=== PATIENT | male | born 1945 | race Caucasian/White ===

== ENCOUNTER 2018-03-28 11:34 | Emergency (ER) | payer OTHER ==
[~2018-03-28] VITALS: Ht 180.3 cm; Wt 108.9 kg
[2018-03-28] MEDS ORDERED: SYNTHR (11:46)
[2018-03-28] MEDS ORDERED: HYZAAR 100-251 EACH (11:47)
[2018-03-28] MEDS ORDERED: GLIPIZIDE XL2.5 MG (11:47)
[2018-03-28] MEDS ORDERED: ATORVASTATIN CA20 MG (11:48)
== END 2018-03-28 16:10 | disposition home or self-care (01) ==
LOC: ER 11:34
DX: R10.11 Right upper quadrant pain (principal)

== ENCOUNTER → 2018-04-20 | Day surgery (SDC) | payer OTHER ==
[~2018-04-20] MED LIST: ATORVASTATIN CA20 MG; GLIPIZIDE XL2.5 MG; HYZAAR 100-251 EACH; SYNTHR
== END | disposition home or self-care (01) ==
LOC: ADM 04-16 07:30 → AMB-ENDOS 07:30
DX: D12.2 Benign neoplasm of ascending colon (principal); D12.3 Benign neoplasm of transverse colon; K64.1 Second degree hemorrhoids

== ENCOUNTER 2018-08-11 06:43 | Emergency (ER) | payer OTHER ==
[~2018-08-11] VITALS: Ht 180.3 cm; Wt 111.1 kg
== END 2018-08-11 16:54 | disposition home or self-care (01) ==
LOC: ER 06:43
DX: M79.605 Pain in left leg (principal)

== ENCOUNTER 2021-11-24 11:01 | Emergency (ER) | payer OTHER ==
[~2021-11-24] VITALS: Ht 177.8 cm; Wt 111.1 kg
[2021-11-24] MEDS ORDERED: SYNTHROID88 MCG (12:50)
[2021-11-24] MEDS ORDERED: PANTOPRAZOLE SO40 M2 (12:50)
[2021-11-24] MEDS ORDERED: CHILDREN'S ASPI81 MG (12:51)
[2021-11-24] MEDS ORDERED: NASAL MIST126 ML (12:51)
== END 2021-11-24 16:39 | disposition home or self-care (01) ==
LOC: ER 11:01
DX: M54.9 Dorsalgia, unspecified (principal)

== ENCOUNTER 2024-02-28 05:15 | Day surgery (SDC) | payer OTHER ==
[2024-02-19 11:09] LABS: PH,URINE 5.5 (5.0-8.0); URINE APPEARANCE Clear; URINE BILIRRUBIN Negative (NEGATIVE); URINE BLOOD Negative; URINE COLOR Yellow; URINE GLUCOSE Negative (NEGATIVE); URINE KETONE 15 (NEGATIVE); URINE LEUKOCYTE Negative; URINE NITRATE Negative; URINE PROTEIN Trace (NEGATIVE); URINE UROBILINOGEN 0.2 E.U./dl
[2024-02-19 11:12] LABS: URINE BACTERIA 45.2 uL (0.0-1933); URINE EPITHELIAL CELLS 5.6 uL (0.0-38.8); URINE WBC 4.1 uL (0.0-23.2)
[2024-02-19 11:18] LABS: HEMATOCRIT 47.4 % (39.0-48.0); HEMOGLOBIN 16.1 g/dL (13-16.00); MEAN CELL VOLUME 99.7 fL (80.0-100.00); MEAN CORPUSCULAR HEMOGLOBIN 33.9 pg (27.00-32.0); PLATELET COUNT 229 K/uL (150-450); RED BLOOD COUNT 4.76 M/uL (4.00-6.00); RED CELL DISTRIBUTION WIDTH 15.3 % (11.5-14.5)
[2024-02-19 11:27] LABS: INR 1.06; PARTIAL THROMBOPLASTIN TIME 28.7 SECONDS (22.0-34.0); PROTHROMBIN TIME 11.5 SECONDS (9.0-11.5)
[2024-02-19 11:30] LABS: URINE CAST 0.44 uL (0.0-1.40)
[2024-02-19 12:20] LABS: ALBUMIN 3.4 gm/dL (3.4-5.0); BILIRUBIN TOTAL 0.81 mg/dL (0.3-1.2); CALCIUM 9.1 mg/dL (8.5-10.1); CREATININE SERUM 1.33 mg/dL (0.70-1.30); GFR 51.73; POTASSIUM 4.77 mEq/L (3.5-5.1); TOTAL PROTEIN 7.4 gm/dL (6.4-8.2)
[~2024-02-28 05:15] MED LIST changes: +CHILDREN'S ASPI81 MG; +NASAL MIST126 ML; +PANTOPRAZOLE SO40 M2; +SYNTHROID88 MCG
[2024-02-28] MEDS ORDERED: BUPIVACAINE HCL/MPF 0.5% 30ML VIAL ONE (08:52)
[2024-02-28] MEDS ORDERED: LIDOCAINE HCL 1%/EPINEPHRINE 20ML VIAL IJ ONE (08:53)
[2024-02-28] MEDS ORDERED: CEFAZOLIN SODIUM 1,000 MG VIAL ONE (08:53)
== END 2024-02-28 10:55 | disposition home or self-care (01) ==
LOC: CIR.AMB 05:15
PROVIDERS: ATTEND Colon & Rectal Surgery
DX: R15.9 Full incontinence of feces (principal)
CPT/HCPCS: 64581; 95972; C1767

== ENCOUNTER 2024-06-20 04:09 | Emergency (ER) | payer OTHER ==
[~2024-06-20] VITALS: Ht 177.8 cm; Wt 113.4 kg
[2024-06-20 05:04] VITALS: BP 130/77; O2SAT 95
[2024-06-20] MEDS ORDERED: LACTOBACILLUS ACIDOPHILUS 1 CAP CAP PO STA (06:15)
[2024-06-20] MEDS ORDERED: 0.9 % SODIUM CHLORIDE 1,000 ML IV ONE (06:15)
[2024-06-20] MEDS ORDERED: FAMOTIDINE/PF 20 MG/2 ML VIAL IV PUSH STA (06:15)
[2024-06-20] MEDS ORDERED: LACTOBACILLUS ACIDOPHILUS 1 CAP CAP PO ONE (07:09)
[2024-06-20] MEDS ORDERED: FAMOTIDINE/PF 20 MG/2 ML VIAL ONE (07:10)
[2024-06-20 07:58] LABS: BASO % 0.2 % (0.1-1.2); EOS # 0.02 (0.04-0.54); EOS % 0.2 % (0.7-7.0); HEMATOCRIT 49.3 % (40.1-51.0); HEMOGLOBIN 15.9 g/dL (13.7-17.5); LYMPH # 1.54 (1.18-3.74); LYMPH % 16.8 % (19.3-53.1); MEAN CORPUSCULAR HEMOGLOBIN 32.3 pg (25.6-32.2); MONO # 0.69 (0.24-0.82); MONO % 7.5 % (4.7-12.5); NEUT # 6.86 (1.56-6.13); NEUT % 75.1 % (34.0-71.1); PLATELET COUNT 240 K/uL (163-369); RED BLOOD COUNT 4.92 M/uL (4.63-6.08); RED CELL DISTRIBUTION WIDTH 15.3 % (11.6-14.4)
[2024-06-20 08:15] LABS: CALCIUM 8.6 mg/dL (8.5-10.1); CREATININE SERUM 1.94 mg/dL (0.70-1.30); GFR 33.46; POTASSIUM 4.99 mEq/L (3.5-5.1)
[2024-06-20 09:57] LABS: PH,URINE 5.5 (5.0-8.0); URINE APPEARANCE Clear; URINE BILIRRUBIN Negative (NEGATIVE); URINE BLOOD Negative; URINE COLOR Yellow; URINE GLUCOSE Negative (NEGATIVE); URINE KETONE Trace (NEGATIVE); URINE LEUKOCYTE Negative; URINE NITRATE Negative; URINE PROTEIN Trace (NEGATIVE); URINE UROBILINOGEN 0.2 E.U./dl
[2024-06-20 10:01] LABS: URINE EPITHELIAL CELLS 4.2 uL (0.0-38.8); URINE RBC 2.2 uL (0.0-20.8); URINE WBC 2.6 uL (0.0-23.2)
[2024-06-20] MEDS ORDERED: LOPERAMIDE HCL 2 MG CAPSULE PO ONE ×2 (10:10→10:15)
[2024-06-20 11:12] LABS: URINE CAST 0.44 uL (0.0-1.40)
== END 2024-06-20 14:31 | disposition home or self-care (01) ==
LOC: ER 04:23
PROVIDERS: General Practice
DX: R19.7 Diarrhea, unspecified (principal); I10 Essential (primary) hypertension; E03.8 Other specified hypothyroidism
CPT/HCPCS: 36415; 96365; 96366; 99282; J3490; J7030